=== PATIENT | female | born 1970 | race Hispanic/Latino ===

== ENCOUNTER → 2024-05-14 | Day surgery (SDC) | payer OTHER ==
[~2024-05-14] MED LIST: GABAPENTIN300 MG PO; IBUPROFEN400 MG PO; LIPITOR10 MG PO; MIDAZOLAM HCL 2 MG/2 ML VIAL ONE
[2024-05-14] MEDS: LACTATED RINGER'S 1,000 ML ONE (09:25)
[2024-05-14 11:23] VITALS: TEMP 97.2
[2024-05-14 11:50] VITALS: BP 122/70; PULSE 78; RESP 16; O2SAT 100
== END | disposition home or self-care (01) ==
LOC: OR 08:02
PROVIDERS: ATTEND Internal Medicine Gastroenterology
DX: Z12.11 Encounter for screening for malignant neoplasm of colon (principal); D12.5 Benign neoplasm of sigmoid colon; D12.8 Benign neoplasm of rectum; K64.8 Other hemorrhoids; E78.5 Hyperlipidemia, unspecified; E66.9 Obesity, unspecified; M54.9 Dorsalgia, unspecified; I45.10 Unspecified right bundle-branch block; Z01.810 Encounter for preprocedural cardiovascular examination; Z79.1 Long term (current) use of non-steroidal anti-inflammatories (NSAID); Z79.899 Other long term (current) drug therapy
CPT/HCPCS: 45385; 93005; J7121; 45378; J2250